=== PATIENT | male | born 1995 | race African-American/Black ===

== ENCOUNTER 2017-10-07 08:17 | Emergency (ER) | payer OTHER ==
[~2017-10-07] VITALS: Ht 157.5 cm; Wt 60.0 kg
[2017-10-07] MEDS ORDERED: LORazepam 1MG TABLET ONE (08:38)
[2017-10-07 08:50] LABS: BASOPHILS # (AUTO) 0.02 x10^3/uL (0-0.1); BASOPHILS % (AUTO) 0 % (0-1); EOSINOPHILS # (AUTO) 0.13 x10^3/uL (0-0.4); EOSINOPHILS % (AUTO) 2 % (1-7); LYMPHOCYTES # (AUTO) 1.81 x10^3/uL (1-3.4); LYMPHOCYTES % (AUTO) 30 % (22-44); MD NO; MEAN CORPUSCULAR VOLUME 84.7 fL (81-97); MEAN PLATELET VOLUME 7.3 fL (7.4-10.4); MONOCYTES # (AUTO) 0.63 x10^3/uL (0.2-0.8); MONOCYTES % (AUTO) 11 % (2-9); NEUTROPHILS # (AUTO) 3.39 x10^3/uL (1.8-6.8); NEUTROPHILS % (AUTO) 57 % (42-75); PLATELET COUNT 303 x10^3/uL (130-400); RED BLOOD COUNT 4.83 x10^6/uL (4.38-5.82); RED CELL DISTRIBUTION WIDTH 13.8 % (9.4-14.8)
[2017-10-07 08:59] LABS: ALANINE AMINOTRANSFERASE 35 U/L (12-78); ALBUMIN 3.4 g/dL (3.4-5.0); ANION GAP 7 mmol/L (5-15); CALCIUM 8.3 mg/dL (8.5-10.1); CHLORIDE 109 mmol/L (98-107); CREATININE 0.96 mg/dL (0.7-1.3); SALICYLATE LEVEL 2.5 mg/dL (2.8-20.0)
[2017-10-07] MEDS ORDERED: LORazepam 1MG TABLET PO ONE (09:00)
[2017-10-07 09:02] LABS: ACETAMINOPHEN < 2 mcg/mL (10-30); ALKALINE PHOSPHATASE 62 U/L (45-117); BILIRUBIN,TOTAL 0.4 mg/dL (0.2-1.0); TOTAL PROTEIN 7.2 g/dL (6.4-8.2)
[2017-10-07 11:54] LABS: AMPHETAMINE SCREEN, URINE Negative (Negative); BARBITURATE SCREEN, URINE Negative (Negative); BENZODIAZEPINE SCREEN, URINE Negative (Negative); CANNABINOID SCREEN, URINE Positive (Negative); COCAINE SCREEN, URINE Negative (Negative); METHADONE SCREEN, URINE Negative (Negative); OPIATE SCREEN, URINE Negative (Negative)
[2017-10-07 14:16] VITALS: BP 117/69
== END 2017-10-07 14:28 | disposition home or self-care (01) ==
LOC: ED 10:35
DX: F22 Delusional disorders (principal)
CPT/HCPCS: 36415; 70450; 80053; 80307; 80329; 85025; 99285; G0480

== ENCOUNTER 2017-10-22 06:46 | Observation (INO) | payer OTHER ==
[~2017-10-22] VITALS: Ht 160 cm; Wt 55.0 kg
[2017-10-22 07:51] LABS: MICROSCOPIC NOT IND
[2017-10-22 07:56] LABS: CULTURE INDICATED? NO
[2017-10-22 07:57] LABS: BASOPHILS # (AUTO) 0.02 x10^3/uL (0-0.1); BASOPHILS % (AUTO) 0 % (0-1); EOSINOPHILS % (AUTO) 3 % (1-7); LYMPHOCYTES # (AUTO) 1.53 x10^3/uL (1-3.4); LYMPHOCYTES % (AUTO) 21 % (22-44); MD NO; MEAN CORPUSCULAR HEMOGLOBIN 28.2 pg (27.5-34.5); MEAN CORPUSCULAR HGB CONC 33.1 g/dL (33.2-36.2); MEAN CORPUSCULAR VOLUME 85.1 fL (81-97); MEAN PLATELET VOLUME 7.4 fL (7.4-10.4); MONOCYTES # (AUTO) 0.71 x10^3/uL (0.2-0.8); MONOCYTES % (AUTO) 10 % (2-9); NEUTROPHILS # (AUTO) 4.91 x10^3/uL (1.8-6.8); NEUTROPHILS % (AUTO) 67 % (42-75); PLATELET COUNT 292 x10^3/uL (130-400); RED BLOOD COUNT 4.82 x10^6/uL (4.38-5.82); RED CELL DISTRIBUTION WIDTH 13.9 % (9.4-14.8)
[2017-10-22 08:09] LABS: ALBUMIN 3.4 g/dL (3.4-5.0); ANION GAP 3 mmol/L (5-15); CALCIUM 8.3 mg/dL (8.5-10.1); CHLORIDE 110 mmol/L (98-107); CREATININE 0.98 mg/dL (0.7-1.3); SALICYLATE LEVEL 2.3 mg/dL (2.8-20.0)
[2017-10-22 08:12] LABS: ACETAMINOPHEN < 2 mcg/mL (10-30)
[2017-10-22 08:34] LABS: AMPHETAMINE SCREEN, URINE Negative (Negative); BARBITURATE SCREEN, URINE Negative (Negative); BENZODIAZEPINE SCREEN, URINE Negative (Negative); CANNABINOID SCREEN, URINE Positive (Negative); COCAINE SCREEN, URINE Negative (Negative); METHADONE SCREEN, URINE Negative (Negative); OPIATE SCREEN, URINE Negative (Negative)
[2017-10-22] MEDS ORDERED: ACETAMINOPHEN 325 MG TABLET PO PRN (09:30)
[2017-10-22] MEDS ORDERED: ZOLPIDEM 5MG TABLET PO PRN (09:30)
[2017-10-22] MEDS ORDERED: ONDANSETRON 2MG/ML, 2ML IVPush PRN (09:30)
[2017-10-22 10:02] VITALS: BP 116/73
[2017-10-22 19:23] VITALS: BP 126/79
[2017-10-23 07:22] VITALS: BP 106/61
[2017-10-23] MEDS ORDERED: HALOPERIDOL 5 MG/ML IM PRN (10:30)
[2017-10-23] MEDS ORDERED: LORazepam 2 MG/ML, 1ML IM PRN (10:30)
[2017-10-23] MEDS ORDERED: LORazepam 2 MG/ML, 1ML ONE (10:32)
[2017-10-23 10:51] VITALS: BP 105/62
[2017-10-23 19:45] VITALS: BP 120/75
[2017-10-24 08:22] VITALS: BP 124/74
[2017-10-24 19:36] VITALS: BP 117/69
[2017-10-25 09:02] VITALS: BP 104/68
[2017-10-25 19:47] VITALS: BP 115/56
[2017-10-26 08:00] VITALS: BP 100/65
[2017-10-26] MEDS ORDERED: HALOPERIDOL 5 MG TABLET PO PRN (17:30)
[2017-10-26] MEDS ORDERED: LORazepam 1MG TABLET PO PRN ×2 (17:30→18:00)
[2017-10-26 19:40] VITALS: BP 106/62
[2017-10-27 08:22] VITALS: BP 124/74
[2017-10-27] MEDS: ARIPIPRAZOLE 10 MG TABLET PO SCH (13:18)
[2017-10-27 19:46] VITALS: BP 113/72
[2017-10-28 07:18] VITALS: BP 114/51
[2017-10-28] MEDS: ARIPIPRAZOLE 10 MG TABLET PO SCH (08:49)
[2017-10-28 19:25] VITALS: BP 102/59
[2017-10-29 07:45] VITALS: BP 122/80
[2017-10-29] MEDS: ARIPIPRAZOLE 10 MG TABLET PO SCH (08:14)
[2017-10-29] MEDS ORDERED: ARIPIPRAZOLE 400 MG INJ NC IM ONE (10:00)
[2017-10-29 19:52] VITALS: BP 112/71
[2017-10-30 07:48] VITALS: BP 116/77
[2017-10-30] MEDS: ARIPIPRAZOLE 10 MG TABLET PO SCH (08:30)
[2017-10-30] MEDS ORDERED: ARIP10TA33 PO (13:10)
== END 2017-10-30 13:20 | disposition home or self-care (01) ==
LOC: ED 08:16 → EDIP 08:17 → ED 08:25 → 2N 09:57
PROVIDERS: ADMIT Internal Medicine; ATTEND Internal Medicine
DX: R44.3 Hallucinations, unspecified (principal); G47.00 Insomnia, unspecified; F41.1 Generalized anxiety disorder; F12.10 Cannabis abuse, uncomplicated; F22 Delusional disorders; F39 Unspecified mood [affective] disorder
CPT/HCPCS: 36415; 80048; 80307; 80329; 81003; 82040; 85025; 96372; 99285; G0378; J1630; J2060; G0480

== ENCOUNTER 2018-02-01 12:56 | Emergency (ER) | payer MEDICAID, OTHER ==
[~2018-02-01] VITALS: Ht 152.4 cm; Wt 52.0 kg
[~2018-02-01 12:56] MED LIST: ARIP10TA33 PO
[2018-02-01 12:58] VITALS: BP 127/80
[2018-02-01] MEDS ORDERED: LORazepam 1MG TABLET PO ONE (13:30)
[2018-02-01 13:44] LABS: MICROSCOPIC NOT IND
[2018-02-01 13:48] LABS: CULTURE INDICATED? NO
[2018-02-01 13:52] LABS: BASOPHILS # (AUTO) 0.03 x10^3/uL (0-0.1); BASOPHILS % (AUTO) 0 % (0-1); EOSINOPHILS % (AUTO) 1 % (1-7); LYMPHOCYTES # (AUTO) 1.43 x10^3/uL (1-3.4); LYMPHOCYTES % (AUTO) 17 % (22-44); MEAN CORPUSCULAR HEMOGLOBIN 28.4 pg (27.5-34.5); MEAN CORPUSCULAR HGB CONC 33.5 g/dL (33.2-36.2); MEAN CORPUSCULAR VOLUME 84.7 fL (81-97); MEAN PLATELET VOLUME 7.8 fL (7.4-10.4); MONOCYTES % (AUTO) 8 % (2-9); NEUTROPHILS # (AUTO) 6.42 x10^3/uL (1.8-6.8); NEUTROPHILS % (AUTO) 74 % (42-75); PLATELET COUNT 289 x10^3/uL (130-400); RED BLOOD COUNT 4.82 x10^6/uL (4.38-5.82); RED CELL DISTRIBUTION WIDTH 13.3 % (9.4-14.8)
[2018-02-01] MEDS ORDERED: LORazepam 1MG TABLET ONE (13:52)
[2018-02-01 13:53] LABS: ALBUMIN 3.7 g/dL (3.4-5.0); ANION GAP 11 mmol/L (5-15); CALCIUM 8.7 mg/dL (8.5-10.1); CHLORIDE 110 mmol/L (98-107); CREATININE 0.81 mg/dL (0.7-1.3); MD NO
[2018-02-01 13:54] LABS: AMPHETAMINE SCREEN, URINE Positive (Negative); BARBITURATE SCREEN, URINE Negative (Negative); BENZODIAZEPINE SCREEN, URINE Negative (Negative); CANNABINOID SCREEN, URINE Positive (Negative); COCAINE SCREEN, URINE Negative (Negative); METHADONE SCREEN, URINE Negative (Negative); OPIATE SCREEN, URINE Negative (Negative)
[2018-02-01 13:54] LABS: SALICYLATE LEVEL < 1.7 mg/dL (2.8-20.0)
[2018-02-01 13:56] LABS: ACETAMINOPHEN < 2 mcg/mL (10-30)
== END 2018-02-01 19:06 | disposition home or self-care (01) ==
LOC: ED 14:57
DX: F33.3 Major depressive disorder, recurrent, severe with psychotic symptoms (principal); R45.851 Suicidal ideations
CPT/HCPCS: 36415; 80048; 80307; 80329; 81003; 82040; 85025; 99284; G0480

== ENCOUNTER 2018-02-05 14:04 | Emergency (ER) | payer MEDICAID, OTHER ==
[~2018-02-05] VITALS: Ht 160 cm; Wt 59.0 kg
[2018-02-05 14:13] VITALS: BP 145/77
[2018-02-05 14:45] LABS: BASOPHILS # (AUTO) 0.06 x10^3/uL (0-0.1); BASOPHILS % (AUTO) 1 % (0-1); EOSINOPHILS # (AUTO) 0.46 x10^3/uL (0-0.4); EOSINOPHILS % (AUTO) 4 % (1-7); LYMPHOCYTES # (AUTO) 2.11 x10^3/uL (1-3.4); LYMPHOCYTES % (AUTO) 19 % (22-44); MD NO; MEAN CORPUSCULAR HEMOGLOBIN 28.2 pg (27.5-34.5); MEAN CORPUSCULAR HGB CONC 32.7 g/dL (33.2-36.2); MEAN CORPUSCULAR VOLUME 86.4 fL (81-97); MEAN PLATELET VOLUME 7.4 fL (7.4-10.4); MONOCYTES # (AUTO) 1.13 x10^3/uL (0.2-0.8); MONOCYTES % (AUTO) 10 % (2-9); NEUTROPHILS # (AUTO) 7.61 x10^3/uL (1.8-6.8); NEUTROPHILS % (AUTO) 67 % (42-75); PLATELET COUNT 329 x10^3/uL (130-400); RED BLOOD COUNT 4.65 x10^6/uL (4.38-5.82); RED CELL DISTRIBUTION WIDTH 13.4 % (9.4-14.8)
[2018-02-05 14:50] LABS: ALBUMIN 3.5 g/dL (3.4-5.0); ANION GAP 5 mmol/L (5-15); CALCIUM 8.3 mg/dL (8.5-10.1); CHLORIDE 109 mmol/L (98-107)
[2018-02-05 14:54] LABS: ALANINE AMINOTRANSFERASE 47 U/L (12-78); ALKALINE PHOSPHATASE 92 U/L (45-117); BILIRUBIN,TOTAL 0.1 mg/dL (0.2-1.0); CREATININE 0.97 mg/dL (0.7-1.3); TOTAL PROTEIN 7.4 g/dL (6.4-8.2)
[2018-02-05 14:58] LABS: ACETAMINOPHEN < 2 mcg/mL (10-30); SALICYLATE LEVEL < 1.7 mg/dL (2.8-20.0)
[2018-02-05 15:49] LABS: AMPHETAMINE SCREEN, URINE Negative (Negative); BARBITURATE SCREEN, URINE Negative (Negative); BENZODIAZEPINE SCREEN, URINE Negative (Negative); CANNABINOID SCREEN, URINE Positive (Negative); COCAINE SCREEN, URINE Negative (Negative); METHADONE SCREEN, URINE Negative (Negative); OPIATE SCREEN, URINE Negative (Negative)
== END 2018-02-05 18:17 | disposition home or self-care (01) ==
LOC: ED 15:15
DX: F32.3 Major depressive disorder, single episode, severe with psychotic features (principal)
CPT/HCPCS: 36415; 80053; 80307; 80329; 85025; 99284; G0480

== ENCOUNTER 2018-04-02 13:25 | Emergency (ER) | payer MEDICAID ==
[~2018-04-02] VITALS: Ht 162.6 cm; Wt 58.3 kg
[2018-04-02] MEDS ORDERED: CEFTRIAXONE 250 MG IM ONE (14:00)
[2018-04-02] MEDS ORDERED: AZITHROMYCIN 250 MG TABLET PO ONE (14:00)
[2018-04-02 14:42] LABS: BASOPHILS # (AUTO) 0.04 x10^3/uL (0-0.1); BASOPHILS % (AUTO) 0 % (0-1); EOSINOPHILS # (AUTO) 0.32 x10^3/uL (0-0.4); EOSINOPHILS % (AUTO) 3 % (1-7); LYMPHOCYTES # (AUTO) 1.85 x10^3/uL (1-3.4); LYMPHOCYTES % (AUTO) 15 % (22-44); MD NO; MEAN CORPUSCULAR HEMOGLOBIN 28.1 pg (27.5-34.5); MEAN CORPUSCULAR HGB CONC 32.8 g/dL (33.2-36.2); MEAN CORPUSCULAR VOLUME 85.6 fL (81-97); MEAN PLATELET VOLUME 6.8 fL (7.4-10.4); MONOCYTES # (AUTO) 0.94 x10^3/uL (0.2-0.8); MONOCYTES % (AUTO) 8 % (2-9); NEUTROPHILS # (AUTO) 9.04 x10^3/uL (1.8-6.8); NEUTROPHILS % (AUTO) 74 % (42-75); PLATELET COUNT 441 x10^3/uL (130-400); RED BLOOD COUNT 4.94 x10^6/uL (4.38-5.82); RED CELL DISTRIBUTION WIDTH 14.5 % (9.4-14.8)
[2018-04-02 14:48] LABS: ALBUMIN 3.2 g/dL (3.4-5.0); ANION GAP 6 mmol/L (5-15); CALCIUM 8.9 mg/dL (8.5-10.1); CHLORIDE 107 mmol/L (98-107)
[2018-04-02] MEDS ORDERED: CEFTRIAXONE 250 MG ONE (14:50)
[2018-04-02 14:51] LABS: ALANINE AMINOTRANSFERASE 27 U/L (12-78); ALKALINE PHOSPHATASE 95 U/L (45-117); BILIRUBIN,TOTAL 0.2 mg/dL (0.2-1.0); CREATININE 0.92 mg/dL (0.7-1.3); TOTAL PROTEIN 7.6 g/dL (6.4-8.2)
[2018-04-02] MEDS ORDERED: AZITHROMYCIN 250 MG TABLET ONE (14:51)
[2018-04-02 15:33] VITALS: BP 122/80
== END 2018-04-02 15:35 | disposition home or self-care (01) ==
LOC: ED 14:50
DX: A56.01 Chlamydial cystitis and urethritis (principal); A54.01 Gonococcal cystitis and urethritis, unspecified; F41.1 Generalized anxiety disorder; F32.9 Major depressive disorder, single episode, unspecified; F20.9 Schizophrenia, unspecified; F29 Unspecified psychosis not due to a substance or known physiological condition; M79.676 Pain in unspecified toe(s); Z72.9 Problem related to lifestyle, unspecified
CPT/HCPCS: 36415; 80053; 85025; 87491; 87591; 96372; 99283; J0696

== ENCOUNTER 2018-04-26 16:38 | Emergency (ER) | payer MEDICAID ==
[~2018-04-26] VITALS: Ht 160 cm; Wt 60.5 kg
[2018-04-26 16:49] VITALS: BP 102/68
== END 2018-04-26 18:14 ==
LOC: ED 18:08
DX: N34.1 Nonspecific urethritis (principal)
CPT/HCPCS: 87491; 87591; 99283

== ENCOUNTER 2018-05-06 08:53 | Emergency (ER) | payer MEDICAID ==
[~2018-05-06] VITALS: Ht 160 cm; Wt 60.6 kg
--- NOTE | 2018-05-06 09:44 | NUR ---
PT STATES HE FEEL HE IS BEING "POSSESSED". LAST METH USE WAS NOON YESTERDAY.
[2018-05-06 09:55] LABS: ALANINE AMINOTRANSFERASE 26 U/L (12-78); ALBUMIN 3.9 g/dL (3.4-5.0); ANION GAP 9 mmol/L (5-15); CALCIUM 8.7 mg/dL (8.5-10.1); CHLORIDE 110 mmol/L (98-107); CREATININE 0.98 mg/dL (0.7-1.3)
[2018-05-06 09:57] LABS: ALKALINE PHOSPHATASE 86 U/L (45-117); BILIRUBIN,TOTAL 0.4 mg/dL (0.2-1.0); SALICYLATE LEVEL < 1.7 mg/dL (2.8-20.0); TOTAL PROTEIN 8.1 g/dL (6.4-8.2)
[2018-05-06 09:58] LABS: ACETAMINOPHEN < 2 mcg/mL (10-30)
[2018-05-06 10:18] LABS: AMPHETAMINE SCREEN, URINE Positive (Negative); BARBITURATE SCREEN, URINE Negative (Negative); BENZODIAZEPINE SCREEN, URINE Negative (Negative); CANNABINOID SCREEN, URINE Positive (Negative); COCAINE SCREEN, URINE Negative (Negative); METHADONE SCREEN, URINE Negative (Negative); OPIATE SCREEN, URINE Negative (Negative)
--- NOTE | 2018-05-06 10:33 | NUR ---
[facility] called for consult
[2018-05-06 10:39] LABS: BASOPHILS # (AUTO) 0.02 x10^3/uL (0-0.1); BASOPHILS % (AUTO) 0 % (0-1); EOSINOPHILS % (AUTO) 3 % (1-7); LYMPHOCYTES # (AUTO) 1.51 x10^3/uL (1-3.4); LYMPHOCYTES % (AUTO) 25 % (22-44); MD SCAN; MEAN CORPUSCULAR HEMOGLOBIN 27.9 pg (27.5-34.5); MEAN CORPUSCULAR HGB CONC 32.7 g/dL (33.2-36.2); MEAN CORPUSCULAR VOLUME 85.4 fL (81-97); MEAN PLATELET VOLUME 7.3 fL (7.4-10.4); MONOCYTES # (AUTO) 0.55 x10^3/uL (0.2-0.8); MONOCYTES % (AUTO) 9 % (2-9); NEUTROPHILS # (AUTO) 3.81 x10^3/uL (1.8-6.8); NEUTROPHILS % (AUTO) 63 % (42-75); PLATELET COUNT 326 x10^3/uL (130-400); RED CELL DISTRIBUTION WIDTH 14.2 % (9.4-14.8)
--- NOTE | 2018-05-06 11:30 | NUR ---
2nd call to [facility] for consult
--- NOTE | 2018-05-06 11:39 | NUR ---
[facility] returned call and will review case and call back.
--- NOTE | 2018-05-06 12:23 | NUR ---
PT IS RESTING ON GURNEY WITH EYES CLOSED, RESPIRATIONS ARE EVEN AND UNLABORED. WAITING FOR ADMISSION TO [facility].
--- NOTE | 2018-05-06 12:58 | NUR ---
CALLED[facility] ([facility]) FOR ADMIT CLARIFICATION TO [facility].
--- NOTE | 2018-05-06 13:06 | NUR ---
PT IS EATING LUNCH. CALM AND COOPERATIVE. CALL LIGHT IS WITHIN REACH.
--- NOTE | 2018-05-06 14:36 | NUR ---
D/C PER MD. PT IS ALERT AND ORIENTED AND AMBULATORY WITHOUT ASSIST. PT VEBALIZED UNDERSTANDING OF D/C INSTRUCTIONS. TAXI VOUCHER GIVEN TO [place].
[2018-05-06 14:40] VITALS: BP 116/72
== END 2018-05-06 14:42 | disposition home or self-care (01) ==
LOC: ED 09:29
DX: F15.10 Other stimulant abuse, uncomplicated (principal); F29 Unspecified psychosis not due to a substance or known physiological condition; F20.0 Paranoid schizophrenia; F41.1 Generalized anxiety disorder; F32.9 Major depressive disorder, single episode, unspecified; Z72.9 Problem related to lifestyle, unspecified
CPT/HCPCS: 36415; 80053; 80307; 80329; 85025; 99284; G0480

== ENCOUNTER 2018-05-23 20:12 | Emergency (ER) | payer MEDICAID ==
[~2018-05-23] VITALS: Ht 167.6 cm; Wt 59.6 kg
[2018-05-23 20:19] VITALS: BP 126/99
[2018-05-23] MEDS ORDERED: IBUPROFEN 200 MG TABLET PO ONE (21:30)
--- NOTE | 2018-05-23 21:36 | NUR ---
Patient/Caregiver given discharge instructions and they have confirmed that they understand the instructions. Patient ambulatory with steady gait.
== END 2018-05-23 21:37 | disposition home or self-care (01) ==
LOC: ED 21:11
DX: S99.922A Unspecified injury of left foot, initial encounter (principal); S99.921A Unspecified injury of right foot, initial encounter; F15.10 Other stimulant abuse, uncomplicated; F32.9 Major depressive disorder, single episode, unspecified; F20.9 Schizophrenia, unspecified; Z59.0 Homelessness; Z72.9 Problem related to lifestyle, unspecified; X31.XXXA Exposure to excessive natural cold, initial encounter; Y93.89 Activity, other specified; Y92.410 Unspecified street and highway as the place of occurrence of the external cause; Y99.8 Other external cause status
CPT/HCPCS: 99282